=== PATIENT | male | born 1995 | race Caucasian/White ===

== ENCOUNTER 2017-12-28 17:59 | Emergency (ER) | payer OTHER ==
[2017-12-28 18:08] VITALS: BP 144/97
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
== END 2017-12-28 20:16 | disposition home or self-care (01) ==
DX: T23.252A Burn of second degree of left palm, initial encounter (principal); T23.232A Burn of second degree of multiple left fingers (nail), not including thumb, initial encounter; T24.212A Burn of second degree of left thigh, initial encounter; T24.211A Burn of second degree of right thigh, initial encounter; T21.24XA Burn of second degree of lower back, initial encounter; X08.8XXA Exposure to other specified smoke, fire and flames, initial encounter; Y92.833 Campsite as the place of occurrence of the external cause